=== PATIENT | female | born 1970 | race Caucasian/White ===

== ENCOUNTER 2021-09-05 03:09 | Emergency (ER) | payer SELFPAY ==
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
--- NOTE | 2021-09-05 15:00 | CT ---
CT cervical spine Technique: Multiple axial sections were obtained from above C1 inferiorly to the lower T4 level. Reconstructed coronal and sagittal images were obtained. Comparison: No prior cervical spine imaging is available. Findings: Severe disc space narrowing is noted at C5-6. Moderate disc space narrowing is noted at C4-5. Anterior and posterior osteophytes are noted at C5-6. Moderate left-sided neural foraminal narrowing is noted at C5-6. Minimal right-sided neural foraminal narrowing is seen at C5-6. Other neural foramina are patent. No bony central canal stenosis is seen. Slight mucosal thickening is seen within both inferior mastoid sinuses. No fracture is seen. No abnormal subluxation is appreciated. Impression: 1. Mild degenerative change as described above. 2. Slight mucosal thickening within both mastoid sinuses which is likely incidental unless patient has infectious symptoms. 3. No acute fracture or subluxation is seen. Diagnostic code #2 I agree with preliminary report from [facility], finalized on 09/05/21, 5:54 AM CDT, code 1
--- NOTE | 2021-09-05 15:02 | CT ---
Head CT Technique: Multiple axial sections through the brain were obtained. Intravenous contrast was not utilized. Reconstructed coronal and sagittal images were obtained. Comparison: No prior intracranial imaging is available. Findings: Ventricles along with basal cisterns and sulci over the convexities appear within normal limits for the patient's age. Calcification is seen within the left frontal region which is likely dystrophic. No other abnormal parenchymal densities are seen. No evidence of intracranial hemorrhage is seen. No midline shift or mass-effect is seen. Mild mucosal thickening is seen within the mastoid sinuses bilaterally. Visualized paranasal sinuses are clear. Mild soft tissue swelling is seen within the right lateral frontal scalp along the superior right orbital region. No acute calvarial abnormality is appreciated. Impression: 1. Soft tissue swelling within the right lateral anterior scalp close to the upper right orbital region. 2. Calcification within the left frontal region most likely dystrophic and believed to be incidental. 3. Mucosal thickening within both mastoid sinuses which is likely incidental unless patient has infectious symptoms. 4. No acute intracranial abnormality is appreciated. Diagnostic code #2 I agree with preliminary report from [facility], finalized on 09/05/21, 5:48 AM CDT, code 1
--- NOTE | 2021-09-05 15:04 | CT ---
CT facial bones Technique: Multiple axial sections through the facial bones were obtained. Reconstructed coronal and sagittal images were obtained. Comparison: No prior facial bone study is available. Findings: Minimally displaced nasal bone fracture is noted. No other facial bone fracture is seen. Paranasal sinuses are clear. Slight mucosal thickening is seen within both mastoid sinuses. Soft tissue swelling is noted within the upper right scalp close to the upper right tyler-orbital region. Impression: 1. Minimally displaced nasal bone fracture. 2. Soft tissue swelling within the upper right scalp. 3. Slight mucosal thickening within both maxillary sinuses which has been previously described on head CT study. Diagnostic code #3 I agree with preliminary report from [facility], finalized on 09/05/21, 5:52 AM CDT, code 1
== END 2021-09-05 07:15 | disposition other institution (70) ==
LOC: JD.ED 03:09
DX: S02.2XXA Fracture of nasal bones, initial encounter for closed fracture (principal); I10 Essential (primary) hypertension; Z88.5 Allergy status to narcotic agent; Z79.899 Other long term (current) drug therapy; Y04.0XXA Assault by unarmed brawl or fight, initial encounter
CPT/HCPCS: 70450; 70450-26; 70486; 70486-26; 72125; 72125-26; 99284-25

== ENCOUNTER 2021-11-16 12:12 | Emergency (ER) | payer MEDICAID ==
--- NOTE | 2021-11-16 13:22 | CT ---
Head CT Technique: Multiple axial sections through the brain were obtained. Intravenous contrast was not utilized. Reconstructed coronal and sagittal images were obtained. Comparison: Prior head CT study of 09/05/21. Findings: Ventricles along with basal cisterns and sulci over the convexities are within normal limits for the patient's age. Calcifications within the cortex of the left frontal region measuring about 5 mm which is stable. No other abnormal parenchymal densities are seen. No evidence of intracranial hemorrhage is seen. No midline shift or mass-effect is seen. Bone window settings were reviewed. Slight mucosal thickening is seen within both maxillary sinuses. No acute finding is seen within the paranasal sinuses. No acute calvarial abnormality is seen. Impression: 1. Calcification within the cortex of the left frontal region. This is stable from prior exam. This presumably is benign. 2. Mild mucosal thickening within both inferior mastoid sinuses most likely incidental. 3. No acute intracranial abnormality is appreciated. Given patient's symptoms, consider brain MRI to further evaluate. Diagnostic code #2
--- NOTE | 2021-11-17 16:56 | EDM.PDOC ---
ED HPI GENERAL MEDICAL PROBLEM - General Chief Complaint: Neurological Problem Stated Complaint: DROOP TO LEFT SIDE OF FACE Time Seen by Provider: 11/16/21 12:29 Source of Information: Reports: Patient History Limitations: Reports: No Limitations - History of Present Illness INITIAL COMMENTS - FREE TEXT/NARRATIVE: Patient is a 51-year-old female who presents with left cheek being drooped which started sometime over the last 24 hours. Patient states she does not often look in the mirror but when she was out shopping with a friend the friend noticed that she was having a facial droop. Patient is not having any numbness or paresthesias. She has no headache or other neurological symptoms. She is able to smile. She denies having any recent fever or chills. She has had no symptoms for Lyme's disease. He has never had previously similar symptoms in the past. 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 Onset: Unknown/Unsure Location: Reports: Face Severity: Mild Headache Pain Score (Numeric/FACES): 4 - Related Data Allergies Allergy/AdvReac Type Severity Reaction Status Date / Time codeine Allergy Cannot Verified 11/16/21 12:26 Remember Home Meds: Home Meds lisinopriL [Lisinopril] 20 mg PO DAILY 09/05/21 [History] Past Medical History Cardiovascular History: Reports: Hypertension [employer] History: Reports: Psychiatric History: Reports: Anxiety, Depression Social & Family History - Tobacco Use Tobacco Use Status *Q: Current Every Day Tobacco User Years of Tobacco use: 30 Packs/Tins Daily: 0.5 - Caffeine Use Caffeine Use: Reports: Coffee - Recreational Drug Use Recreational Drug Use: No ED ROS GENERAL - Review of Systems Review Of Systems: Comprehensive ROS is negative, except as noted in HPI. Constitutional: Reports: No Symptoms HEENT: Reports: No Symptoms Respiratory: Reports: No Symptoms Cardiovascular: Reports: No Symptoms GI/Abdominal: Reports: No Symptoms : Reports: No Symptoms Musculoskeletal: Reports: No Symptoms Skin: Reports: No Symptoms Neurological: Denies: Dizziness, Headache, Numbness, Paresthesia, Trouble Speaking, Weakness, Change in Speech Psychiatric: Reports: No Symptoms ED EXAM, NEURO - Physical Exam Exam: See Below Exam Limited By: No Limitations General Appearance: Alert, No Apparent Distress Head Exam: Atraumatic, Normocephalic Neck: Normal Inspection Respiratory/Chest: No Respiratory Distress Cardiovascular: Normal Peripheral Pulses Neurological: Alert, Normal Mood/Affect, Other (Slight facial droop left cheek only. Patient is able to puff out both cheeks. She has no sensory component to this.). No: CN II-XII Intact Back Exam: Normal Inspection Extremities: Normal Inspection Psychiatric: Normal Affect Course - Vital Signs Text/Narrative:: Due to patient developing a headache while in the ED she did have a CT of her head which shows no acute disease. Patient had already been started on antivirals and steroids. She will be given information on Ernandez's palsy. Last Recorded V/S: Last Vital Signs Temp 97.1 F 11/16/21 12:22 Pulse 97 11/16/21 12:22 Resp 20 11/16/21 12:22 BP 159/97 H 11/16/21 12:22 Pulse Ox 98 11/16/21 12:22 Departure - Departure Time of Disposition: 14:00 Disposition: Against Medical Advice 07 Condition: Good Clinical Impression: Ernandez's palsy - Discharge Information Instructions: Ernandez Palsy, Adult Referrals: Shahrzad Kaufman NP [Primary Care Provider] - Forms: ED Department Discharge Additional Instructions: Tape eyelid shut at night if needed. Meds as prescribed by clinic. Follow-up with PCP if not improving. Return to ER if worse.
== END 2021-11-16 14:50 | disposition left against medical advice (07) ==
LOC: JD.ED 12:12
DX: G51.0 Bell's palsy (principal); I10 Essential (primary) hypertension; Z88.5 Allergy status to narcotic agent; Z79.899 Other long term (current) drug therapy; Z72.0 Tobacco use
CPT/HCPCS: 70450; 70450-26; 99284-25